=== PATIENT | female | born 1945 | race Caucasian/White ===

== ENCOUNTER 2017-08-16 12:33 | Emergency (ER) | payer MEDICARE ==
[~2017-08-16] VITALS: Ht 170.2 cm; Wt 72.6 kg
[~2017-08-16 12:33] MED LIST: ALPR.5; AMLO5; ASPI81EC; Aspir 8181 MG PO; BELPTAB; BUTASPCAF; CRUTCH4 USE; DOXE0.5 PO; ERGO50000 PO; ESCI20; FIORINAL-COD 31 EACH; HYDACE5 PO; HYDCHL12.5 PO; HYDR10; IBUP600 PO; INDO50 PO; K-Tab10 MEQ; LISI5 PO; LOSA50 PO; NEBI5; NEBI5 PO; NITR.4SL SL; Nitrostat0.4 MG SL; OXYB5; OXYB5 PO; PARI1; PARI1 PO; POTCHL10ER; RANI150; SIMV40 PO; SPIHYD; SPIHYD PO; SPIR50 PO; VARE1 PO; [UNRECOGNIZED DRUG - REMARK]
== END 2017-08-16 14:35 | disposition home or self-care (01) ==
LOC: ER 12:33
DX: S80.12XA Contusion of left lower leg, initial encounter (principal); I12.9 Hypertensive chronic kidney disease with stage 1 through stage 4 chronic kidney disease, or unspecified chronic kidney disease; N18.9 Chronic kidney disease, unspecified; F17.200 Nicotine dependence, unspecified, uncomplicated; Z88.8 Allergy status to other drugs, medicaments and biological substances; Z79.82 Long term (current) use of aspirin; Z79.899 Other long term (current) drug therapy; X58.XXXA Exposure to other specified factors, initial encounter
CPT/HCPCS: 93971; 99284

== ENCOUNTER 2018-08-09 13:57 | Day surgery (SDC) | payer MEDICARE, OTHER ==
[~2018-08-09] VITALS: Ht 170.2 cm; Wt 72.6 kg
[~2018-08-09 13:57] MED LIST changes: +ALL DAY ALLERGY10 M1 PO; +ALPR.5 PO; +Calcium Acetat667 MG; +Esgic Tablet1 EACH PO; +HYDCHL25 PO; +HYDR10 PO; +MAGOXI400; +MYRBETRIQ25 MG; +MYRBETRIQ25 MG PO; +Nitrostat0.4 MG; +POTCHL10ER PO; +Simvastatin20 MG; +Simvastatin20 MG PO; +VITAMIN D35000 UNIT; +VITAMIN D35000 UNIT PO
== END 2018-08-09 16:57 | disposition home or self-care (01) ==
LOC: ORSCSDS 13:57
PROVIDERS: Internal Medicine Gastroenterology
PROC: 3E0H8GC Introduction of Other Therapeutic Substance into Lower GI, Via Natural or Artificial Opening Endoscopic (ICD-10-PCS; principal; 2018-08-09 14:45)
PROC: 0DBK8ZX Excision of Ascending Colon, Via Natural or Artificial Opening Endoscopic, Diagnostic (ICD-10-PCS; principal; 2018-08-09 14:45)
PROC: 0DBL8ZX Excision of Transverse Colon, Via Natural or Artificial Opening Endoscopic, Diagnostic (ICD-10-PCS; principal; 2018-08-09 14:45)
DX: Z12.11 Encounter for screening for malignant neoplasm of colon (principal); D12.2 Benign neoplasm of ascending colon; D12.3 Benign neoplasm of transverse colon; K57.30 Diverticulosis of large intestine without perforation or abscess without bleeding; K64.8 Other hemorrhoids; Z86.010 Personal history of colon polyps; Z80.0 Family history of malignant neoplasm of digestive organs; Z86.73 Personal history of transient ischemic attack (TIA), and cerebral infarction without residual deficits; F32.9 Major depressive disorder, single episode, unspecified; E78.5 Hyperlipidemia, unspecified; J44.9 Chronic obstructive pulmonary disease, unspecified; I12.9 Hypertensive chronic kidney disease with stage 1 through stage 4 chronic kidney disease, or unspecified chronic kidney disease; N18.4 Chronic kidney disease, stage 4 (severe); Z79.82 Long term (current) use of aspirin; Z79.899 Other long term (current) drug therapy; F17.210 Nicotine dependence, cigarettes, uncomplicated
CPT/HCPCS: 88305; J1040; J2704; J7120

== ENCOUNTER 2018-08-10 11:42 | Day surgery (SDC) | payer MEDICARE, OTHER ==
[~2018-08-10] VITALS: Ht 167.6 cm; Wt 71.9 kg
== END 2018-08-10 12:41 | disposition home or self-care (01) ==
LOC: ORSCSDS 11:42
PROVIDERS: Anesthesiology
PROC: 3E0R33Z Introduction of Anti-inflammatory into Spinal Canal, Percutaneous Approach (ICD-10-PCS; principal; 2018-08-10 12:30)
DX: M54.16 Radiculopathy, lumbar region (principal); M48.061 Spinal stenosis, lumbar region without neurogenic claudication; I25.10 Atherosclerotic heart disease of native coronary artery without angina pectoris; I73.9 Peripheral vascular disease, unspecified; F32.9 Major depressive disorder, single episode, unspecified; I12.9 Hypertensive chronic kidney disease with stage 1 through stage 4 chronic kidney disease, or unspecified chronic kidney disease; N18.4 Chronic kidney disease, stage 4 (severe); Z79.82 Long term (current) use of aspirin; Z79.899 Other long term (current) drug therapy; F17.210 Nicotine dependence, cigarettes, uncomplicated
CPT/HCPCS: J1040

== ENCOUNTER 2020-02-13 13:04 | Day surgery (SDC) | payer MEDICARE, OTHER ==
[~2020-02-13 13:04] MED LIST changes: +REPATHA SU140 MG/1 M
== END 2020-02-13 13:30 | disposition home or self-care (01) ==
LOC: ORSCSDS 13:04
DX: Z86.010 Personal history of colon polyps (principal); Z53.9 Procedure and treatment not carried out, unspecified reason
CPT/HCPCS: J2704; J7120

== ENCOUNTER 2020-06-20 16:27 | Emergency (ER) | payer MEDICARE, OTHER ==
[~2020-06-20] VITALS: Ht 170.2 cm; Wt 72.6 kg
[2020-06-20 16:56] LABS: Source, Urine Voided
[2020-06-20 17:03] LABS: BASOPHILS ABSOLUTE AUTO 0.07 K/mm3 (0.00-0.23); BASOPHILS PERCENT AUTO 1 % (0-2); EOSINOPHILS ABSOLUTE AUTO 0.15 K/mm3 (0.00-0.68); EOSINOPHILS PERCENT AUTO 2 % (0-6); Hematocrit 35.6 % (33.0-51.0); Hemoglobin 11.9 g/dL (11.5-16.0); IMMATURE GRAN ABSOLUTE AUTO 0.03 K/mm3 (0.00-0.10); IMMATURE GRAN PERCENT AUTO 0 % (0-1); LYMPHOCYTES ABSOLUTE AUTO 1.62 K/mm3 (0.84-5.20); LYMPHOCYTES PERCENT AUTO 21 % (21-46); MONOCYTES PERCENT AUTO 13 % (4-13); Mean Corpuscular HGB 31.1 pg (26.0-34.0); Mean Corpuscular HGB Conc 33.4 g/dL (31.5-36.5); Mean Corpuscular Volume 93 fL (80-100); Mean Platelet Volume 12.5 fL (9.1-12.4); NEUTROPHILS ABSOLUTE AUTO 4.82 K/mm3 (1.96-9.15); NEUTROPHILS PERCENT AUTO 63 % (41-73); Platelet Count 125 K/mm3 (150-400); RDW Coefficient Variation 12.3 % (11.7-14.2); RDW Standard Deviation 41.7 fL (35.1-46.3); Red Blood Cell Count 3.83 M/mm3 (3.80-5.20); White Blood Cell Count 7.69 K/mm3 (4.00-11.30)
[2020-06-20 17:04] LABS: Appearance, Urine Clear (Clear); Bilirubin, Urine Neg (Neg); Blood, Urine 3+ (Neg); Color, Urine Yellow (P-Yellow); Glucose Qualitative, Urine Neg (Neg); Ketones, Urine Neg (Neg); Leukocyte Esterase, Urine 1+ (Neg); Nitrite, Urine Neg (Neg); Protein, Urine 3+ (Neg); Urobilinogen, Urine NORM (Normal)
[2020-06-20 17:10] LABS: Amorphous Light (0-Heavy); Bacteria Few /hpf; Squamous Epithelial Cells Rare /hpf (Few)
[2020-06-20] MEDS ORDERED: ESCI10 PO (17:29)
[2020-06-20] MEDS ORDERED: ALPRAZOLAM0.5 M1 PO (17:29)
[2020-06-20] MEDS ORDERED: BUTALB-ACETAMI1 EAC7 PO (17:31)
[2020-06-20 17:39] LABS: Troponin I <0.015 ng/mL (0.000-0.040)
[2020-06-20 17:40] LABS: Alanine Aminotransfer (ALT/SGP 17 U/L (12-78); Albumin, Blood 3.6 g/dL (3.4-5.0); Albumin/Globulin Ratio 0.9 (0.8-1.8); Alk Phos 102 U/L (50-136); Anion Gap 5 mmol/L (6-16); Aspartate Aminotrans (AST/SGOT 28 U/L (12-37); Bilirubin, Total 0.7 mg/dL (0.1-1.0); Blood Urea Nitrogen 52 mg/dL (8-24); Bun/Creatinine Ratio 17.5 (12.0-20.0); CO2, Blood 27 mmol/L (21-32); Calcium, Blood 10.5 mg/dL (8.5-10.1); Chloride, Blood 108 mmol/L (98-108); Creatinine, Blood 2.97 mg/dL (0.40-1.00); Glomerular Filtration Rate 16 (60-); Glucose, Blood 101 mg/dL (70-99); Potassium, Blood 3.2 mmol/L (3.5-5.5); Sodium, Blood 140 mmol/L (136-145); Total Protein, Blood 7.6 g/dL (6.4-8.2)
[2020-06-20 17:43] LABS: Thyroid Stimulating Hormone 0.133 uIU/mL (0.360-4.800)
== END 2020-06-20 20:49 | disposition home or self-care (01) ==
LOC: ER 16:27
PROVIDERS: Emergency Medicine
DX: I10 Essential (primary) hypertension (principal); E78.00 Pure hypercholesterolemia, unspecified; Z88.8 Allergy status to other drugs, medicaments and biological substances; Z86.73 Personal history of transient ischemic attack (TIA), and cerebral infarction without residual deficits; Z87.891 Personal history of nicotine dependence; Z79.899 Other long term (current) drug therapy
CPT/HCPCS: 36415; 76775; 80053; 81001; 84443; 84484; 85025; 87086; 96374-59; 99285-25; P9612

== ENCOUNTER → 2020-06-30 | Outpatient (CLI) | payer MEDICARE, OTHER ==
[~2020-06-30] MED LIST changes: +ALPRAZOLAM0.5 M1 PO; +BUTALB-ACETAMI1 EAC7 PO; +ESCI10 PO
[2020-07-03 15:37] LABS: Appearance, Urine Clear (Clear); Bilirubin, Urine Neg (Neg); Blood, Urine Neg (Neg); Color, Urine Yellow (P-Yellow); Glucose Qualitative, Urine Neg (Neg); Ketones, Urine Neg (Neg); Leukocyte Esterase, Urine Neg (Neg); Nitrite, Urine Neg (Neg); Protein, Urine 2+ (Neg); Urobilinogen, Urine NORM (Normal)
[2020-07-03 15:40] LABS: Bacteria Rare /hpf; Squamous Epithelial Cells Few /hpf (Few); White Blood Cells, Urine 0-2 /hpf (0-5)
== END ==
LOC: LAB SHORT 14:18 → PLD 14:18
PROVIDERS: Family Medicine
DX: N39.0 Urinary tract infection, site not specified (principal)
CPT/HCPCS: 81001

== ENCOUNTER 2021-03-05 08:31 | Emergency (ER) | payer MEDICARE, OTHER ==
[~2021-03-05] VITALS: Ht 152.4 cm; Wt 49.9 kg
[~2021-03-05 08:31] MED LIST changes: -ALPRAZOLAM0.5 M1 PO; -HYDR10 PO
[2021-03-05] MEDS ORDERED: HYDRA50 PO (08:46)
[2021-03-05] MEDS ORDERED: NEBI5 PO (08:46)
[2021-03-05] MEDS ORDERED: ESCI10 PO (08:46)
[2021-03-05] MEDS ORDERED: ASPI81CH PO (08:46)
[2021-03-05] MEDS ORDERED: Alprazolam ER0.5 MG PO (08:46)
[2021-03-05] MEDS ORDERED: LOSA50 PO (08:46)
[2021-03-05] MEDS ORDERED: TRAM50 PO (08:47)
[2021-03-05 09:32] LABS: BASOPHILS ABSOLUTE AUTO 0.08 K/mm3 (0.00-0.23); BASOPHILS PERCENT AUTO 1 % (0-2); EOSINOPHILS ABSOLUTE AUTO 0.08 K/mm3 (0.00-0.68); EOSINOPHILS PERCENT AUTO 1 % (0-6); Hematocrit 34.6 % (33.0-51.0); IMMATURE GRAN ABSOLUTE AUTO 0.02 K/mm3 (0.00-0.10); IMMATURE GRAN PERCENT AUTO 0 % (0-1); LYMPHOCYTES ABSOLUTE AUTO 1.01 K/mm3 (0.84-5.20); LYMPHOCYTES PERCENT AUTO 15 % (21-46); MONOCYTES ABSOLUTE AUTO 0.77 K/mm3 (0.16-1.47); MONOCYTES PERCENT AUTO 11 % (4-13); Mean Corpuscular HGB 30.6 pg (26.0-34.0); Mean Corpuscular HGB Conc 31.8 g/dL (31.5-36.5); Mean Corpuscular Volume 96 fL (80-100); Mean Platelet Volume 12.5 fL (9.1-12.4); NEUTROPHILS ABSOLUTE AUTO 4.84 K/mm3 (1.96-9.15); NEUTROPHILS PERCENT AUTO 71 % (41-73); Platelet Count 123 K/mm3 (150-400); RDW Coefficient Variation 13.1 % (11.7-14.2); Red Blood Cell Count 3.59 M/mm3 (3.80-5.20)
[2021-03-05 09:41] LABS: U Amphetamine Screen Not Detected; U Barbituate Screen Not Detected; U Benzodiazapine Screen Not Detected; U Buprenorphine Screen Not Detected; U Cannabinoids Screen Not Detected; U Cocaine Screen Not Detected; U Methadone Screen Not Detected; U Methamphetamine Screen Not Detected; U Opiates Screen Not Detected; U Oxycodone Screen Not Detected; U Phencyclidine Screen Not Detected
[2021-03-05 09:42] LABS: U Propoxyphene Screen Not Detected
[2021-03-05 09:51] LABS: Alanine Aminotransfer (ALT/SGP 16 U/L (12-78); Albumin, Blood 3.2 g/dL (3.4-5.0); Albumin/Globulin Ratio 0.8 (0.8-1.8); Alk Phos 64 U/L (50-136); Anion Gap 8 mmol/L (6-16); Aspartate Aminotrans (AST/SGOT 19 U/L (12-37); Bilirubin, Total 0.4 mg/dL (0.1-1.0); Blood Urea Nitrogen 56 mg/dL (8-24); Bun/Creatinine Ratio 15.6 (12.0-20.0); CO2, Blood 22 mmol/L (21-32); CPK Creatine Kinase 68 U/L (26-193); Chloride, Blood 110 mmol/L (98-108); Creatinine, Blood 3.59 mg/dL (0.40-1.00); Glomerular Filtration Rate 12 (60-); Glucose, Blood 103 mg/dL (70-99); Potassium, Blood 4.2 mmol/L (3.5-5.5); Sodium, Blood 140 mmol/L (136-145); Total Protein, Blood 7.2 g/dL (6.4-8.2)
[2021-03-05 09:53] LABS: Creatine Kinase MB <1.0 ng/mL (0.0-3.6); Creatine Kinase MB Index Unable to Calculate (0.0-4.0); Ethanol (Alcohol), Blood, Med <3 mg/dL
[2021-03-05 12:10] LABS: Source, Urine Catheter
[2021-03-05 12:19] LABS: Appearance, Urine Clear (Clear); Bilirubin, Urine Neg (Neg); Blood, Urine 1+ (Neg); Color, Urine Yellow (P-Yellow); Glucose Qualitative, Urine Neg (Neg); Ketones, Urine Neg (Neg); Leukocyte Esterase, Urine 2+ (Neg); Nitrite, Urine Neg (Neg); Protein, Urine 3+ (Neg); Specific Gravity, Urine 1.015 (1.003-1.022); Urobilinogen, Urine NORM (Normal)
[2021-03-05 12:37] LABS: Triple Phosphate Crystals Few /hpf; White Blood Cells, Urine 25-50 /hpf (0-5)
[2021-03-05 12:38] LABS: Bacteria Many /hpf; Squamous Epithelial Cells Rare /hpf (Few)
[2021-03-05] MEDS ORDERED: NITR.4SL SL (13:24)
[2021-03-05] MEDS ORDERED: PAIN RELIEF1 EACH TD (13:27)
[2021-03-05] MEDS ORDERED: PRESERVISION A1 EAC1 PO (13:29)
[2021-03-05] MEDS ORDERED: ERGO400 PO (13:30)
[2021-03-05] MEDS ORDERED: GABAPE TOP (13:33)
[2021-03-05] MEDS ORDERED: LIDOC TOP (13:33)
--- NOTE | 2021-03-05 15:00 | NUR ---
Called to ER to speak with family of pt. Pt daughter was not in room so called her. Pt Daughter Mayte Key [phone]. She was tearful and upset because her mother is starting to fail more. She stated that they have been discussing palliative care and transition hospice for awhile now. pt has been falling more and loosing weight. Her mother has been on service for [facility] for physicl therapy. She has not had a visiting nurse. Daughter has been happy with [facility] and would like to stay with them. Notified pt primary care and requested a referral. Pt was to return to [place]. Plan now is to seeabout admission. faxed a packet to [facility]. they can see her . Will follow up with care aide on plan of care.
--- NOTE | 2021-03-05 16:20 | NUR ---
Review of pt with care manage usure of admit. updated ameysis just to make sure pt gets care she needs and does not suffer.
[2021-03-05] MEDS ORDERED: Cephalexin500 M1 PO (16:51)
[2021-03-06] MEDS ORDERED: ESCI10 PO (14:30)
[2021-03-06] MEDS ORDERED: ASPI81CH PO (14:30)
[2021-03-06] MEDS ORDERED: NEBI5 PO (14:31)
[2021-03-06] MEDS ORDERED: POTA10T PO (14:31)
[2021-03-06] MEDS ORDERED: TRAM50 PO (14:33)
== END 2021-03-05 17:47 | disposition home or self-care (01) ==
LOC: ER 08:31
PROVIDERS: Physician Assistant
DX: N39.0 Urinary tract infection, site not specified (principal); I12.9 Hypertensive chronic kidney disease with stage 1 through stage 4 chronic kidney disease, or unspecified chronic kidney disease; N18.9 Chronic kidney disease, unspecified; Z86.73 Personal history of transient ischemic attack (TIA), and cerebral infarction without residual deficits; Z88.8 Allergy status to other drugs, medicaments and biological substances; Z79.899 Other long term (current) drug therapy; Z79.82 Long term (current) use of aspirin; Z87.891 Personal history of nicotine dependence
CPT/HCPCS: 70450; 80053; 81001; 82550; 82553; 82947; 84484; 85025; 87077; 87086; 87186; 93005; 93010; 96365; 96375; 96376; 99285-25; A9270; G0480; J0360; J0696; P9612

== ENCOUNTER 2021-03-06 11:39 | Observation (INO) | payer MEDICARE, OTHER ==
[~2021-03-06] VITALS: Ht 162.6 cm; Wt 47.7 kg
[~2021-03-06 11:39] MED LIST changes: +ASPI81CH PO; +Alprazolam ER0.5 MG PO; +Cephalexin500 M1 PO; +ERGO400 PO; +GABAPE TOP; +HYDRA50 PO; +LIDOC TOP; +PAIN RELIEF1 EACH TD; +PRESERVISION A1 EAC1 PO; +TRAM50 PO
[2021-03-06 13:17] LABS: BASOPHILS ABSOLUTE AUTO 0.07 K/mm3 (0.00-0.23); BASOPHILS PERCENT AUTO 1 % (0-2); EOSINOPHILS ABSOLUTE AUTO 0.07 K/mm3 (0.00-0.68); EOSINOPHILS PERCENT AUTO 1 % (0-6); Hematocrit 34.2 % (33.0-51.0); Hemoglobin 11.1 g/dL (11.5-16.0); IMMATURE GRAN ABSOLUTE AUTO 0.02 K/mm3 (0.00-0.10); IMMATURE GRAN PERCENT AUTO 0 % (0-1); LYMPHOCYTES ABSOLUTE AUTO 1.12 K/mm3 (0.84-5.20); LYMPHOCYTES PERCENT AUTO 17 % (21-46); MONOCYTES ABSOLUTE AUTO 0.74 K/mm3 (0.16-1.47); MONOCYTES PERCENT AUTO 11 % (4-13); Mean Corpuscular HGB 31.4 pg (26.0-34.0); Mean Corpuscular HGB Conc 32.5 g/dL (31.5-36.5); Mean Corpuscular Volume 97 fL (80-100); NEUTROPHILS ABSOLUTE AUTO 4.72 K/mm3 (1.96-9.15); NEUTROPHILS PERCENT AUTO 70 % (41-73); Platelet Count 122 K/mm3 (150-400); RDW Coefficient Variation 13.3 % (11.7-14.2); RDW Standard Deviation 47.8 fL (35.1-46.3); Red Blood Cell Count 3.53 M/mm3 (3.80-5.20); White Blood Cell Count 6.74 K/mm3 (4.00-11.30)
[2021-03-06 13:29] LABS: Mean Platelet Volume 13.4 fL (9.1-12.4)
[2021-03-06 13:57] LABS: Bun/Creatinine Ratio 16.1 (12.0-20.0); Calcium, Blood 13.4 mg/dL (8.5-10.1); Creatinine, Blood 3.85 mg/dL (0.40-1.00); Potassium, Blood 4.3 mmol/L (3.5-5.5)
--- NOTE | 2021-03-06 14:02 | NUR ---
ED Palliative Care Consult Spoke with Dr Sierra and discussed case. Pt to the ED with AMS. Pt visited the ED yesterday with ED Pot Holder Binder Marily and Palliative Care RN Hanna assisting with establishing goals of care. Ultimately Pt's wishes were hospice services and Pt was D/C back to [place] with plan for [facility]. Pt resting on gurney upon arrival. Pt is pleasantly confused and is A&OX1/2. Daughter Mayte is present durng visit. Engaged in therapeutic listening and answered questions. Revisited goals of care with daughter Mayte reporting she is hopeful that the antibiotics will assist with clearing Pt and improve her quality of life. She reports she will consider hospice in a few days. Gentle education on disease process including trajectory of disease. Continued therapeutic listening. Spoke with Pot Holder Binder Marily and discussed case. Palliative Care will reamin available.
[2021-03-06] MEDS ORDERED: ASPI81CH PO (14:30)
[2021-03-06] MEDS ORDERED: ESCI10 PO (14:30)
[2021-03-06] MEDS ORDERED: POTA10T PO (14:31)
[2021-03-06] MEDS ORDERED: NEBI5 PO (14:31)
[2021-03-06] MEDS ORDERED: TRAM50 PO (14:33)
--- NOTE | 2021-03-06 19:16 | NUR ---
SHIFT SUMMARY: ASSUMED CARE OF PATIENT AT 1829 UPON HER ARRIVAL FROM ED. ALERT, ORIENTED TO SELF AND BIRTHDAY, PLEASANT. NS AT 200 INFUSING. SKIN INTACT. UNSURE IF SHE CAN GIVE ANY INFORMATION FOR HER ADMISSION. EDUCATED ABOUT USE OF CALL LIGHT, ORIENTED TO ROOM. CALL LIGHT IN REACH. REPORT TO Isha LLOYD RN.
[2021-03-07] MEDS ORDERED: Keflex250 MG PO (10:59)
[2021-03-07] MEDS ORDERED: VISBIOME 112.51 EACH PO (11:00)
--- NOTE | 2021-03-07 11:48 | NUR ---
PATIENT DISCHARGED BACK TO [facility] ACCOMPANIED BY DAUGHTER. IV SALINE LOCK REMOVED WITHOUT INCIDENT. PT'S DAUGHTER VERBALIZED UNDERSTANDING OF D/C INSTRUCTIONS. OFF UNIT VIA W/C AT 1110. NO BELONGINGS LEFT BEHIND IN ROOM. MEDICATION LIST FAXED TO [facility]. ATTEMPTED TO GIVE TELEPHONE REPORT, BUT FACILITY MANAGER FIBER NOT AVAILABLE AT TIME OF D/C. [facility] TO FOLLOW.
== END 2021-03-07 11:21 | disposition hospice, home (50) ==
LOC: ER 11:39 → ERHOLD 11:40 → MEDS 11:40
PROVIDERS: Emergency Medicine; ADMIT Internal Medicine
DX: R53.1 Weakness (principal); N39.0 Urinary tract infection, site not specified; E83.52 Hypercalcemia; I12.0 Hypertensive chronic kidney disease with stage 5 chronic kidney disease or end stage renal disease; N18.5 Chronic kidney disease, stage 5; D63.1 Anemia in chronic kidney disease; D69.6 Thrombocytopenia, unspecified; E78.5 Hyperlipidemia, unspecified; I69.351 Hemiplegia and hemiparesis following cerebral infarction affecting right dominant side; I69.328 Other speech and language deficits following cerebral infarction; Z88.8 Allergy status to other drugs, medicaments and biological substances; Z66 Do not resuscitate; Z87.891 Personal history of nicotine dependence
CPT/HCPCS: 36415; 80048; 85025; 96374; 99285-25; A9270; G0378; J0360; J0696; J7030